=== PATIENT | male | born 1970 | race Two or more races ===

== ENCOUNTER 2024-01-10 11:58 | Inpatient (IN) | payer OTHER ==
[~2024-01-10] VITALS: Ht 170.2 cm; Wt 81.6 kg
[2024-01-10 13:01] LABS: BASOPHILS % (AUTO) 0.1 % (0.0-2.0); HEMATOCRIT 41 % (39-51); HEMOGLOBIN 13.9 g/dL (13.5-17.5); LYMPHOCYTES # (AUTO) 0.6 K/uL (0.8-4.8); MEAN CORPUSCULAR HEMOGLOBIN 30 PG (26.0-33.0); MEAN CORPUSCULAR HGB CONC 34 g/dl (31.0-36.0); MEAN CORPUSCULAR VOLUME 87 fL (80-96); MONOCYTES # (AUTO) 1.2 K/uL (0.1-1.30); MONOCYTES % (AUTO) 12.2 % (2.0-12.0); NEUTROPHILS # (AUTO) 7.9 K/uL (1.8-8.9); NEUTROPHILS % (AUTO) 81.7 % (43.0-81.0); PLATELET COUNT (AUTO) 228 K/uL (150-450); RED BLOOD CELL COUNT(AUTO) 4.68 MIL/uL (4.5-6.0); RED CELL DISTRIBUTION WIDTH 13.1 % (11.5-15.0); WHITE BLOOD COUNT (AUTO) 9.6 K/uL (4.3-11.0)
[2024-01-10 13:08] LABS: CALCIUM, SERUM 8.1 mg/dL (8.5-10.1); CARBON DIOXIDE 27 mmol/L (21-32); CHLORIDE 103 mmol/L (98-107); CREATININE 1.3 mg/dL (0.6-1.3); GLUCOSE 135 mg/dL (74-106); POTASSIUM 3.6 mmol/L (3.5-5.1); SODIUM SERUM 135 mmol/L (136-145); UREA NITROGEN, BLOOD 18 mg/dL (7-18)
[2024-01-10] MEDS: HEPARIN SODIUM, PORCINE 5000 UNITS/1 ML VIAL IV ONE (14:00)
[2024-01-10] MEDS: HEPARIN INFUSION/D5W 500 ML IV PRN ×2 (14:15→19:14)
[2024-01-10] MEDS ORDERED: HEPARIN INFUSION/D5W 500 ML IV PRN (14:16)
[2024-01-10] MEDS ORDERED: HEPARIN SODIUM, PORCINE 5000 UNITS/1 ML VIAL ONE (14:21)
[2024-01-10] MEDS ORDERED: HEPARIN INFUSION/D5W 500 ML IV ONE (14:21)
[2024-01-10 14:42] LABS: INR 1.11 (0.91-1.10); PARTIAL THROMBOPLASTIN TIME 34.2 SEC (24.3-34.3); PROTHROMBIN TIME 11.7 SECS (9.2-11.1)
[2024-01-10] MEDS ORDERED: ASPI-1498 PO (15:05)
[2024-01-10] MEDS ORDERED: VITAMIN D PO (15:05)
[2024-01-10] MEDS ORDERED: FLUT16SP16 NS (15:05)
[2024-01-10] MEDS ORDERED: ASCO100058 PO (15:05)
[2024-01-10] MEDS ORDERED: METO25TA4 PO (15:05)
[2024-01-10] MEDS ORDERED: RED600CA2 PO (15:05)
[2024-01-10] MEDS ORDERED: MAGNESIUM PO (15:05)
[2024-01-10] MEDS ORDERED: QUERCITIN PO (15:05)
[2024-01-10] MEDS ORDERED: CETI-90 PO (15:05)
[2024-01-10] MEDS ORDERED: [UNRECOGNIZED DRUG - OTHER] PO (15:05)
[2024-01-10] MEDS ORDERED: ACETAMINOPHEN 325 MG TABLET PO PRN (15:30)
[2024-01-10] MEDS ORDERED: MAG HYDROX/AL HYDROX/SIMETH 30 ML UDC PO PRN (15:30)
[2024-01-10] MEDS: ASPIRIN EC 81 MG TABLET.DR PO SCH (15:30)
[2024-01-10] MEDS ORDERED: ONDANSETRON HCL/PF 4 MG/2 ML VIAL IVP PRN (15:30)
[2024-01-10] MEDS ORDERED: MAGNESIUM HYDROXIDE 30 ML UDC PO PRN (15:30)
[2024-01-10] MEDS ORDERED: Z GUARD REMEDY 4 OZ OINT TP PRN (15:30)
[2024-01-10 20:00] VITALS: BP 107/80; TEMP 99.2; O2SAT 93
[2024-01-10] MEDS: METOPROLOL SUCCINATE 25 MG TAB.SR.24H PO SCH (20:36)
[2024-01-10] MEDS: FLUTICASONE PROPIONATE 16 GM BOTTLE NS PRN (20:36)
[2024-01-11] VITALS: BP 113/89; TEMP 99.2; O2SAT 97
[2024-01-11 03:17] VITALS: BP 118/81; O2SAT 97
[2024-01-11] MEDS: NITROGLYCERIN 0.4 MG/TAB BOTTLE SL PRN (03:17)
[2024-01-11 03:30] VITALS: BP 107/71; O2SAT 95
[2024-01-11] MEDS: MORPHINE SULFATE INJ 2 MG/ML DISP.SYRIN IV PRN (03:33)
[2024-01-11 04:00] VITALS: BP 118/81; TEMP 98.9; O2SAT 97
[2024-01-11] MEDS ORDERED: IV NS 0.9% 1,000 ML ONE (07:36)
[2024-01-11] MEDS ORDERED: IV SET PRIMARY PUMP SET 1 EA INFUS.SET MC ONE (07:37)
[2024-01-11 07:43] LABS: CALCIUM, SERUM 7.9 mg/dL (8.5-10.1); CREATININE 1.1 mg/dL (0.6-1.3); MAGNESIUM 2.3 mg/dL (1.8-2.4); PHOSPHORUS 3.2 mg/dL (2.5-4.9); POTASSIUM 3.6 mmol/L (3.5-5.1)
[2024-01-11 08:00] VITALS: BP 123/83; TEMP 98.2; O2SAT 96
[2024-01-11 08:00] LABS: BASOPHILS % (AUTO) 0.3 % (0.0-2.0); EOSINOPHILS % (AUTO) 0.4 % (0.0-6.0); HEMATOCRIT 41 % (39-51); HEMOGLOBIN 13.9 g/dL (13.5-17.5); LYMPHOCYTES # (AUTO) 1.2 K/uL (0.8-4.8); LYMPHOCYTES % (AUTO) 16.5 % (20.0-44.0); MEAN CORPUSCULAR HEMOGLOBIN 30 PG (26.0-33.0); MEAN CORPUSCULAR HGB CONC 34 g/dl (31.0-36.0); MEAN CORPUSCULAR VOLUME 87 fL (80-96); MONOCYTES # (AUTO) 1.1 K/uL (0.1-1.30); MONOCYTES % (AUTO) 14.1 % (2.0-12.0); NEUTROPHILS # (AUTO) 5.1 K/uL (1.8-8.9); NEUTROPHILS % (AUTO) 68.7 % (43.0-81.0); PLATELET COUNT (AUTO) 248 K/uL (150-450); RED BLOOD CELL COUNT(AUTO) 4.65 MIL/uL (4.5-6.0); RED CELL DISTRIBUTION WIDTH 12.9 % (11.5-15.0); WHITE BLOOD COUNT (AUTO) 7.5 K/uL (4.3-11.0)
[2024-01-11] MEDS: ATORVASTATIN 40 MG TABLET PO SCH (08:20)
[2024-01-11 08:22] LABS: CHOLESTEROL 140 mg/dL (<200); HDL CHOLESTEROL 41 mg/dL (40-60); LDL 82 mg/dL (0-99); TRIGLYCERIDES 98 mg/dL (30-150)
[2024-01-11] MEDS ORDERED: METOPROLOL SUCCINATE 25 MG TAB.SR.24H PO SCH ×2 (09:00→19:00)
[2024-01-11] MEDS ORDERED: ASPIRIN EC 81 MG TABLET.DR PO SCH (09:00)
[2024-01-11] MEDS ORDERED: LIDOCAINE HCL/PF 1% 30 ML SDV ONE (09:47)
[2024-01-11] MEDS ORDERED: IODIXANOL 150 ML IV ONE ×2 (09:47→11:37)
[2024-01-11] MEDS ORDERED: NITROGLYCERIN IN 5 % DEXTROSE 250 ML IV ONE (09:47)
[2024-01-11] MEDS ORDERED: FENTANYL PF 100MCG/2ML AMPUL ONE (11:27)
[2024-01-11] MEDS ORDERED: MIDAZOLAM HCL 2 MG/2ML VIAL ONE (11:27)
[2024-01-11] MEDS ORDERED: ATOR40TA PO (16:54)
== END 2024-01-11 19:02 | disposition home or self-care (01) | DRG 282 ==
LOC: ER 12:04 → TELE 16:01 → MED 01-11 18:29
PROVIDERS: ADMIT Internal Medicine; ATTEND Internal Medicine
PROC: 4A023N7 Measurement of Cardiac Sampling and Pressure, Left Heart, Percutaneous Approach (ICD-10-PCS; principal; 2024-01-11)
PROC: B211YZZ Fluoroscopy of Multiple Coronary Arteries using Other Contrast (ICD-10-PCS; 2024-01-11)
PROC: B215YZZ Fluoroscopy of Left Heart using Other Contrast (ICD-10-PCS; 2024-01-11)
DX: I51.4 Myocarditis, unspecified (principal); I21.4 Non-ST elevation (NSTEMI) myocardial infarction; E78.5 Hyperlipidemia, unspecified; I10 Essential (primary) hypertension; I48.0 Paroxysmal atrial fibrillation; Z79.899 Other long term (current) drug therapy; Z79.82 Long term (current) use of aspirin; Z79.51 Long term (current) use of inhaled steroids
CPT/HCPCS: 36415; 71045-TC; 80048-TC; 80061-TC; 83735-TC; 84100-TC; 84484-TC; 85025-TC; 85730-TC; 93307-TC; A4223; C1887; G0378; G0500; J1644; J2250; J2270; J3010; J3490; J7030; Q9967